=== PATIENT | female | born 1985 | race African-American/Black ===

== ENCOUNTER 2021-09-09 19:35 | Emergency (ER) | payer MEDICAID, OTHER ==
[~2021-09-09] VITALS: Ht 165.1 cm; Wt 93.6 kg
[~2021-09-09 19:35] MED LIST: PREN-134 PO
[2021-09-09 23:09] LABS: COVID AG,FIA SOURCE NASOPHARYNGEAL
[2021-09-09] MEDS ORDERED: BENZONATATE 100 MG CAPSULE PO ONE (23:15)
[2021-09-09] MEDS ORDERED: BENZ-70 PO (23:33)
[2021-09-09 23:45] LABS: INFLUENZA TYPE A NEGATIVE FOR TYPE A (NEGATIVE); INFLUENZA TYPE B NEGATIVE FOR TYPE B (NEGATIVE)
[2021-09-09 23:53] VITALS: BP 139/75
== END 2021-09-09 23:55 | disposition home or self-care (01) ==
LOC: EMS 19:37
DX: J40 Bronchitis, not specified as acute or chronic (principal); Z79.899 Other long term (current) drug therapy; Z20.822 Contact with and (suspected) exposure to COVID-19
CPT/HCPCS: 71045; 87804; 99284